=== PATIENT | male | born 1990 | race Caucasian/White ===

== ENCOUNTER 2021-12-26 08:39 | Emergency (ER) | payer SELFPAY ==
[~2021-12-26] VITALS: Ht 170.2 cm; Wt 83.9 kg
--- NOTE | 2021-12-26 08:40 | NUR ---
Patient alert and orientedx4, complaints of difficulty urination with hematuria for 2 days, chills and fever started last night with left flank pain 5/10. Not in distress.
--- NOTE | 2021-12-26 08:55 | NUR ---
MD at bedside, medical screening exam in process.
[2021-12-26] MEDS ORDERED: IV NORMAL SALINE 1000 ML BAG IV ONE (09:15)
[2021-12-26 09:31] LABS: *BILIRUBIN,URIN NEGATIVE (NEGATIVE); *BLOOD, URINE 3+ (NEGATIVE); *COLOR,URINE YELLOW (YELLOW); *KETONES,URINE NEGATIVE (NEGATIVE); LEUKOCYTE ESTERASE ,URINE 3+ (NEGATIVE); NITRITE, URINE NEGATIVE (NEGATIVE); UGLUCOSE NEGATIVE (NEGATIVE)
[2021-12-26 09:37] LABS: *CLARITY,URINE SLIGHTLY CLOUDY (CLEAR)
--- NOTE | 2021-12-26 09:40 | NUR ---
per MD order, bladder scan done revealing 98ml.
[2021-12-26 09:41] LABS: HEMATOCRIT 46.3 % (36.7-47.1); MEAN CORPUSCULAR HEMOGLOBIN 30.3 uug (23.8-33.4); MEAN CORPUSCULAR VOLUME 87.9 fL (73.0-96.2); PLATELET COUNT (AUTO) 310 K/uL (152-348)
[2021-12-26 09:42] LABS: BACTERIA,URINE FEW /HPF (NONE SEEN); SQUAMOUS EPITHELIAL CELL,UR FEW /HPF (NONE SEEN)
[2021-12-26 09:43] LABS: RBC,URINE 50-80 /HPF (0-3); WBC,URINE 80-100 /HPF (0-3)
[2021-12-26 09:51] LABS: POTASSIUM 3.7 mmol/L (3.5-5.1)
[2021-12-26] MEDS ORDERED: CEFTRIAXONE 1 G in IV DEXTROSE 5% 50 ML IV ONE (10:00)
[2021-12-26 10:03] LABS: BILIRUBIN,DIRECT 0.2 mg/dL (0.0-0.2); BILIRUBIN,TOTAL 0.9 mg/dL (0.2-1.0); TOTAL PROTEIN, SERUM 7.5 g/dL (6.4-8.2)
[2021-12-26] MEDS ORDERED: CEFTRIAXONE /D5W 50ML IVPB **ER PYXIS IV ONE (10:11)
[2021-12-26] MEDS ORDERED: CEPH500C2 PO (11:24)
[2021-12-26] MEDS ORDERED: PHEN-705 PO (11:24)
[2021-12-26] MEDS ORDERED: ACETAMINOPHEN ES 500 MG TABLET ONE (11:36)
[2021-12-26] MEDS ORDERED: ACETAMINOPHEN ES 500 MG TABLET PO ONE (11:45)
--- NOTE | 2021-12-26 11:45 | NUR ---
Removed IV intact, site okay, bandaged. Gave pt RX and d/c instructions, pt verbalized understanding.
--- NOTE | 2021-12-26 11:47 | NUR ---
Pt c/o severe SNEED pain, advised, ordered 1g Tylenol. Otherwise, pt feels a bit better
== END 2021-12-26 12:00 | disposition home or self-care (01) ==
LOC: EDBD 08:39 → ER 08:39
DX: N12 Tubulo-interstitial nephritis, not specified as acute or chronic (principal); B96.20 Unspecified Escherichia coli [E. coli] as the cause of diseases classified elsewhere; E78.5 Hyperlipidemia, unspecified; I10 Essential (primary) hypertension; E11.9 Type 2 diabetes mellitus without complications; I25.2 Old myocardial infarction; R31.0 Gross hematuria
CPT/HCPCS: 71045; 80048; 80076; 81001; 83605; 83880; 85025; 85730; 87040 ×2; 87077; 87086; 87186; 87426; 93005; 96361; 96365; 99285; J0696; 36415; A4663; A9150; J7040

== ENCOUNTER 2022-01-12 19:50 | Inpatient (IN) | payer SELFPAY ==
[~2022-01-12] VITALS: Ht 170.2 cm; Wt 83.9 kg
[~2022-01-12 19:50] MED LIST: CEPH500C2 PO; PHEN-705 PO
--- NOTE | 2022-01-12 20:06 | NUR ---
pt ambulated to room 3, came in with fever, chills sore throat.
--- NOTE | 2022-01-12 20:25 | NUR ---
Dr. Siddiqui in room for MARYAM.
[2022-01-12] MEDS ORDERED: ACETAMINOPHEN ES 500 MG TABLET PO ONE (20:45)
[2022-01-12] MEDS ORDERED: IV NORMAL SALINE 1000 ML BAG IV ONE (20:45)
[2022-01-12 21:09] LABS: HEMATOCRIT 42.1 % (36.7-47.1); MEAN CORPUSCULAR HEMOGLOBIN 30.4 uug (23.8-33.4); MEAN CORPUSCULAR VOLUME 85.8 fL (73.0-96.2); PLATELET COUNT (AUTO) 330 K/uL (152-348)
[2022-01-12] MEDS ORDERED: ACETAMINOPHEN ES 500 MG TABLET ONE (21:11)
[2022-01-12 21:15] LABS: CARBON DIOXIDE 22 mmol/L (21-32); CHLORIDE 96 mmol/L (98-107); CREATININE 1.1 mg/dL (0.6-1.3); GLUCOSE 115 mg/dL (74-106); POTASSIUM 3.1 mmol/L (3.5-5.1); UREA NITROGEN, BLOOD 14 mg/dL (7-18)
[2022-01-12 21:28] LABS: ALANINE AMINOTRANSFERASE 29 U/L (16-63); ALKALINE PHOSPHATASE 95 U/L (50-136); ASPARTATE AMINOTRANSFERASE 21 U/L (15-37); BILIRUBIN,DIRECT 0.4 mg/dL (0.0-0.2); LACTATE DEHYDROGENASE 139 U/L (85-227); TOTAL PROTEIN, SERUM 7.9 g/dL (6.4-8.2)
[2022-01-12 21:43] LABS: *BILIRUBIN,URIN 1+ (NEGATIVE); *BLOOD, URINE 3+ (NEGATIVE); *CLARITY,URINE CLOUDY (CLEAR); *KETONES,URINE 4+ (NEGATIVE); LEUKOCYTE ESTERASE ,URINE 3+ (NEGATIVE); NITRITE, URINE NEGATIVE (NEGATIVE); UGLUCOSE NEGATIVE (NEGATIVE)
[2022-01-12 21:44] LABS: *COLOR,URINE YELLOW (YELLOW)
[2022-01-12] MEDS ORDERED: POTASSIUM CHLORIDE 20 MEQ TAB.PRT.SR PO ONE (21:45)
[2022-01-12 21:59] LABS: WBC,URINE TNTC /HPF (0-3)
[2022-01-12 22:00] LABS: BACTERIA,URINE FEW /HPF (NONE SEEN); SQUAMOUS EPITHELIAL CELL,UR FEW /HPF (NONE SEEN)
--- NOTE | 2022-01-12 22:13 | NUR ---
updated ER MD on v/s of pt.
[2022-01-12 22:59] LABS: CREATINE KINASE, TOTAL 80 U/L (39-308)
[2022-01-12] MEDS ORDERED: CEFTRIAXONE 1 G in IV DEXTROSE 5% 50 ML IV ONE (23:30)
[2022-01-12] MEDS ORDERED: AZITHROMYCIN IV 1,000 MG in IV DEXTROSE 5% 250 ML IV ONE (23:30)
[2022-01-12] MEDS ORDERED: CEFTRIAXONE /D5W 50ML IVPB **ER PYXIS IV ONE (23:36)
[2022-01-12] MEDS ORDERED: AZITHROMYCIN 500MG/ D5W 250ML IVPB **ER PYXIS ONLY IV ONE (23:37)
[2022-01-13 00:26] LABS: ABG BASE EXCESS -1.2 mmol/L; ABG HCO3 20.5 mmol/L; ABG PCO2 27.2 mmHg (35.0-45.0); ABG PH 7.495 (7.350-7.450); ABG SITE RIGHT RADIAL; ABG TOTAL HEMOGLOBIN 15.3 G/dL (13.5-18.0); COHb 0.5 % (0.5-1.5); MetHb 0.3 % (0.0-1.5); O2Hb 93.1 % (94.0-97.0); VENT MODE ROOM AIR
--- NOTE | 2022-01-13 00:38 | NUR ---
report to Will RN pt to go to room 306.
--- NOTE | 2022-01-13 00:40 | NUR ---
call to [facility] panel doctor Lucy Mclean for admission.
--- NOTE | 2022-01-13 00:59 | NUR ---
Lucy Mclean called back for DR. Siddiqui.
[2022-01-13] MEDS ORDERED: MAGNESIUM HYDROXIDE 30 ML LIQUID UDC PO PRN (01:30)
[2022-01-13] MEDS ORDERED: INSULIN REGULAR, HUMAN 300 UNIT/3 ML VIAL SQ PRN (01:30)
[2022-01-13] MEDS ORDERED: ZOLPIDEM 5 MG TABLET PO PRN (01:30)
[2022-01-13] MEDS ORDERED: INSULIN REGULAR, HUMAN 300 UNITS/3 ML VIAL SQ PRN (01:30)
[2022-01-13] MEDS ORDERED: ONDANSETRON 4 MG/2 ML VIAL IV PRN (01:30)
[2022-01-13] MEDS ORDERED: REMEDY ESSENTIAL ZINC PASTE 113 GM TP PRN (01:30)
[2022-01-13] MEDS ORDERED: DEXTROSE 50% 50 ML DISP.SYRIN IV PRN (01:30)
--- NOTE | 2022-01-13 01:30 | NUR ---
Admitted patient in Med Surg floor under the care of Lucy Mclean DIRECTOR BLOOD BANK, patient alert oriented, speak bots[place], understand [place], [place] speaking staff able to interpret for the patient, no complain of pain at this time, Patient stated he did not have flu vaccine, but he fully vaccinated for Covid 19. cont to monitor.
[2022-01-13 01:40] VITALS: BP 109/68
--- NOTE | 2022-01-13 01:45 | NUR ---
pt transported to room 306 via [facility] with all belongings, RN Will at bedside to receive the pt. She was informed the the Zithromax needs to complete.
[2022-01-13 04:52] VITALS: BP 117/72
[2022-01-13] MEDS: ACETAMINOPHEN 325 MG TABLET PO PRN ×3 (05:08→20:43)
[2022-01-13] MEDS: BLOOD SUGAR DIAGNOSTIC 1 EACH STRIP VI SCH ×4 (05:14→20:47)
--- NOTE | 2022-01-13 05:58 | NUR ---
Patient was shivering, check temp 99.2 oral, given blanket and tylenol meds as ordered, blood sugar 106, tylenol effective, no further shivering noted, cont to monitor.
[2022-01-13 08:56] LABS: MEAN CORPUSCULAR HEMOGLOBIN 30.4 uug (23.8-33.4); MEAN CORPUSCULAR VOLUME 86.6 fL (73.0-96.2); PLATELET COUNT (AUTO) 311 K/uL (152-348)
[2022-01-13 09:06] LABS: CREATININE 0.9 mg/dL (0.6-1.3); POTASSIUM 3.4 mmol/L (3.5-5.1)
[2022-01-13] MEDS: BENZOCAINE/MENTH/CETYLPYRD LOZENGE MM PRN ×2 (12:06→16:01)
[2022-01-13 12:08] VITALS: BP 119/77
[2022-01-13] MEDS: IV NS 1000 ML 1,000 ML IV PRN (14:53)
[2022-01-13 16:06] VITALS: BP 108/66
--- NOTE | 2022-01-13 19:30 | NUR ---
Received pt awake,alert and orientedx4. Pt can make his needs known. Pt in no acute distress. Iv intact. Safety and comfort provided. Will continue to monitor.
[2022-01-13 20:03] VITALS: BP 108/67
[2022-01-13] MEDS: CEFTRIAXONE 1 G in IV DEXTROSE 5% 50 ML IV SCH (20:43)
[2022-01-14 04:03] VITALS: BP 110/57
[2022-01-14] MEDS: IV NS 1000 ML 1,000 ML IV PRN ×2 (05:43→17:24)
--- NOTE | 2022-01-14 06:16 | NUR ---
Pt in no acute distress. Pt can make his needs known. Prescribed medication given and pt tolerated it well. Pt given Tylenol 650 mg at 2043H for headache. After an hour pt stated he felt better. Pt compliant with care. Pt iv intact. Safety and comfort provided.All needs are met. Will endorse to incoming nurse for continuity of care.
[2022-01-14 06:22] LABS: HEMATOCRIT 39.5 % (36.7-47.1); MEAN CORPUSCULAR HEMOGLOBIN 30.5 uug (23.8-33.4); MEAN CORPUSCULAR VOLUME 86.8 fL (73.0-96.2); PLATELET COUNT (AUTO) 297 K/uL (152-348)
[2022-01-14] MEDS: BLOOD SUGAR DIAGNOSTIC 1 EACH STRIP VI SCH ×4 (06:37→20:28)
[2022-01-14 06:42] LABS: CREATININE 0.9 mg/dL (0.6-1.3); MAGNESIUM 1.9 mg/dL (1.8-2.4); PHOSPHOROUS 2.3 mg/dL (2.5-4.9); POTASSIUM 3.3 mmol/L (3.5-5.1)
[2022-01-14] MEDS ORDERED: NEUTRA PHOS PACKET PO ONE (08:30)
[2022-01-14] MEDS ORDERED: POTASSIUM CHLORIDE 20 MEQ TAB.PRT.SR PO ONE (08:30)
[2022-01-14 12:00] VITALS: BP 114/77
[2022-01-14 16:16] VITALS: BP 111/75
--- NOTE | 2022-01-14 19:30 | NUR ---
Received pt awake, alert and orientedx4. Pt in no acute distress. Iv intact. Safety and comfort provided. Will continue to monitor.
[2022-01-14 20:03] VITALS: BP 100/57
[2022-01-14] MEDS: CEFTRIAXONE 1 G in IV DEXTROSE 5% 50 ML IV SCH (20:28)
[2022-01-15] MEDS: IV NS 1000 ML 1,000 ML IV PRN (03:13)
[2022-01-15 04:00] VITALS: BP 105/62
--- NOTE | 2022-01-15 06:20 | NUR ---
Pt slept comfortably. Pt in no acute distress. Prescribed medication given and pt tolerated it well. Safety and comfort provided. All needs are met. Vital signs within normal limit. Will endorse to incoming nurse for continuity of care.
[2022-01-15 06:25] LABS: HEMATOCRIT 39.7 % (36.7-47.1); MEAN CORPUSCULAR HEMOGLOBIN 30.2 uug (23.8-33.4); MEAN CORPUSCULAR VOLUME 86.9 fL (73.0-96.2); PLATELET COUNT (AUTO) 314 K/uL (152-348)
[2022-01-15 06:44] LABS: CREATININE 0.9 mg/dL (0.6-1.3); PHOSPHOROUS 3.4 mg/dL (2.5-4.9); POTASSIUM 3.9 mmol/L (3.5-5.1)
[2022-01-15] MEDS ORDERED: LEVO500T90 PO (10:00)
--- NOTE | 2022-01-15 11:55 | NUR ---
Discharge instructions provided to the patient with freelance interpreter/translator at bedside with verbalized understanding. Discharge papers singed by and given to the patient. All belongings well accounted for. Assisted with his needs. Patient remains alert, oriented x 4, not in any form of distress on room air, ambulatory. He denies any pain or discomfort. Assisted patient to the lobby.
== END 2022-01-15 11:50 | disposition home or self-care (01) | DRG 871 ==
LOC: ER 19:53 → TELE3 01-13 01:14 → MEDSURG3 01-13 02:11
PROVIDERS: ADMIT Family Medicine; ATTEND Internal Medicine
DX: A41.9 Sepsis, unspecified organism (principal); J18.9 Pneumonia, unspecified organism; N39.0 Urinary tract infection, site not specified; E87.1 Hypo-osmolality and hyponatremia; E66.9 Obesity, unspecified; E78.5 Hyperlipidemia, unspecified; E86.1 Hypovolemia; E87.6 Hypokalemia; F17.210 Nicotine dependence, cigarettes, uncomplicated; R31.0 Gross hematuria; Z68.29 Body mass index [BMI] 29.0-29.9, adult; Z71.6 Tobacco abuse counseling; Z20.822 Contact with and (suspected) exposure to COVID-19; B96.20 Unspecified Escherichia coli [E. coli] as the cause of diseases classified elsewhere
CPT/HCPCS: 36415; 36600; 71045; 82803; 83605; 83615; 83735; 84100; 84484; 85025; 86140; 87040; 87077; 87086; 87400; 93005; A4663; A9150; G0378; J0456; J0696; J1815; J7040; J7050; U0003